=== PATIENT | female | born 1940 | race Caucasian/White ===

== ENCOUNTER 2023-06-02 11:40 | Inpatient (IN) | payer MEDICARE, OTHER ==
[~2023-06-02] VITALS: Ht 157.5 cm; Wt 49.9 kg
[2023-06-02] MEDS ORDERED: LEVO75TA7 PO (12:06)
[2023-06-02] MEDS ORDERED: DOCU-141 PO (12:06)
[2023-06-02] MEDS ORDERED: SENN1TAB59 PO (12:06)
[2023-06-02] MEDS ORDERED: MELO-105 PO (12:06)
[2023-06-02] MEDS ORDERED: ATOR40TA PO (12:06)
[2023-06-02] MEDS ORDERED: BISA-79 PO (12:06)
[2023-06-02] MEDS ORDERED: OMEP20CA15 PO (12:06)
[2023-06-02 12:19] LABS: BASOPHILS # (AUTO) 0.1 K/UL (0.0-0.2); BASOPHILS % (AUTO) 1.2 % (0.0-2.0); EOSINOPHILS # (AUTO) 0.1 K/uL (0.0-0.7); EOSINOPHILS % (AUTO) 2.2 % (0.0-7.0); HEMATOCRIT 36.3 % (31.2-41.9); HEMOGLOBIN 12.1 g/dL (10.9-14.3); LYMPHOCYTES # (AUTO) 0.2 K/uL (0.8-4.8); LYMPHOCYTES % (AUTO) 2.8 % (20.5-51.5); MEAN CORPUSCULAR HEMOGLOBIN 30.3 uug (24.7-32.8); MEAN CORPUSCULAR HGB CONC 33 g/dL (32.3-35.6); MEAN CORPUSCULAR VOLUME 91.1 fL (75.5-95.3); MONOCYTES # (AUTO) 0.3 K/uL (0.1-1.30); MONOCYTES % (AUTO) 5.3 % (0.0-11.0); NEUTROPHILS # (AUTO) 5.6 K/uL (1.8-8.9); NEUTROPHILS % (AUTO) 88.5 % (38.5-71.5); PLATELET COUNT (AUTO) 248 K/uL (179-408); RED BLOOD CELL COUNT(AUTO) 3.98 MIL/uL (3.63-4.92); RED CELL DISTRIBUTION WIDTH 14.5 % (12.3-17.7); WHITE BLOOD COUNT (AUTO) 6.3 K/uL (3.8-11.8)
[2023-06-02 12:28] LABS: CALCIUM 9.5 mg/dL (8.5-10.1); CARBON DIOXIDE 28 mmol/L (21-32); CHLORIDE 97 mmol/L (98-107); GLUCOSE 103 mg/dL (74-106); POTASSIUM 4.1 mmol/L (3.5-5.1); SODIUM SERUM 131 mmol/L (136-145); UREA NITROGEN, BLOOD 25 mg/dL (7-18)
[2023-06-02 12:41] LABS: THYROID STIMULATING HORMONE 1.981 mIU/mL (0.358-3.740)
[2023-06-02 12:42] LABS: DIFFERENTIAL COMMENT 1
[2023-06-02 12:46] LABS: ALANINE AMINOTRANSFERASE 12 U/L (14-59); ALKALINE PHOSPHATASE 67 U/L (50-136); AMMONIA < 10 umol/L (11-32); ASPARTATE AMINOTRANSFERASE 12 U/L (15-37); BILIRUBIN,DIRECT 0.1 mg/dL (0.0-0.2); BILIRUBIN,TOTAL 0.4 mg/dL (0.2-1.0); ETHANOL < 3 MG/DL (0-10); TOTAL PROTEIN, SERUM 6.2 g/dL (6.4-8.2)
[2023-06-02 12:47] LABS: ACETAMINOPHEN < 2.0 ug/mL (10-30)
[2023-06-02] MEDS ORDERED: diphenhydrAMINE 50 MG/1 ML VIAL IV ONE (13:00)
[2023-06-02] MEDS ORDERED: diphenhydrAMINE 50 MG CAPSULE PO ONE (13:15)
[2023-06-02] MEDS ORDERED: diphenhydrAMINE 50 MG CAPSULE ONE (13:16)
[2023-06-02 13:30] LABS: *BILIRUBIN,URIN NEGATIVE (NEGATIVE); *CLARITY,URINE CLEAR (CLEAR); *COLOR,URINE YELLOW (YELLOW); *KETONES,URINE NEGATIVE (NEGATIVE); *PROTEIN,URINE NEGATIVE (NEGATIVE); *UROBILINOGEN,URINE 0.2 E.U./dl (NORMAL); LEUKOCYTE ESTERASE ,URINE 3+ (NEGATIVE); NITRITE, URINE POSITIVE (NEGATIVE); UGLUCOSE NEGATIVE (NEGATIVE)
[2023-06-02 13:36] LABS: *BLOOD, URINE TRACE (NEGATIVE)
[2023-06-02 13:49] LABS: BACTERIA,URINE MANY /HPF (NONE SEEN); SQUAMOUS EPITHELIAL CELL,UR FEW /HPF (NONE SEEN); WBC,URINE 80-100 /HPF (0-3)
[2023-06-02] MEDS ORDERED: AMIN30LI2 PO (14:22)
[2023-06-02] MEDS ORDERED: MAGN400O6 PO (14:22)
[2023-06-02] MEDS ORDERED: ACET325C7 PO (14:22)
[2023-06-02] MEDS ORDERED: CRAN450T9 PO (14:22)
[2023-06-02] MEDS ORDERED: BENA20TA78 PO (14:22)
[2023-06-02] MEDS ORDERED: NA P133E RC (14:22)
[2023-06-02] MEDS ORDERED: BUSP15TA3 PO (14:22)
[2023-06-02] MEDS ORDERED: DONE5TAB7 PO (14:22)
[2023-06-02] MEDS ORDERED: BISA10SU61 RC (14:22)
[2023-06-02] MEDS ORDERED: PERMETHRIN 5% CREAM 60 GM TUBE TP ONE (15:15)
[2023-06-02] MEDS ORDERED: MAGNESIUM HYDROXIDE 30 ML LIQUID UDC PO PRN (16:30)
[2023-06-02] MEDS ORDERED: MAG HYDROX/AL HYDROX/SIMETH 30 ML LIQUID UDC PO PRN (16:30)
[2023-06-02] MEDS ORDERED: BLOOD SUGAR DIAGNOSTIC 1 EACH STRIP VI ONE (16:30)
[2023-06-02 18:01] VITALS: BP 120/87; TEMP 98.4; O2SAT 96
[2023-06-02 19:51] VITALS: BP 125/82; TEMP 98.4; O2SAT 96
[2023-06-02] MEDS: TEMAZEPAM 7.5 MG CAPSULE PO PRN (20:40)
[2023-06-03 08:33] LABS: BASOPHILS # (AUTO) 0.1 K/UL (0.0-0.2); EOSINOPHILS # (AUTO) 0.4 K/uL (0.0-0.7); EOSINOPHILS % (AUTO) 6.8 % (0.0-7.0); HEMATOCRIT 38.5 % (31.2-41.9); HEMOGLOBIN 12.9 g/dL (10.9-14.3); LYMPHOCYTES # (AUTO) 0.5 K/uL (0.8-4.8); LYMPHOCYTES % (AUTO) 8.1 % (20.5-51.5); MEAN CORPUSCULAR HEMOGLOBIN 30.3 uug (24.7-32.8); MEAN CORPUSCULAR HGB CONC 34 g/dL (32.3-35.6); MEAN CORPUSCULAR VOLUME 90.2 fL (75.5-95.3); MONOCYTES # (AUTO) 0.4 K/uL (0.1-1.30); MONOCYTES % (AUTO) 6.4 % (0.0-11.0); NEUTROPHILS # (AUTO) 5.1 K/uL (1.8-8.9); NEUTROPHILS % (AUTO) 77.7 % (38.5-71.5); PLATELET COUNT (AUTO) 252 K/uL (179-408); RED BLOOD CELL COUNT(AUTO) 4.27 MIL/uL (3.63-4.92); RED CELL DISTRIBUTION WIDTH 14.4 % (12.3-17.7); WHITE BLOOD COUNT (AUTO) 6.6 K/uL (3.8-11.8)
[2023-06-03 08:36] LABS: DIFFERENTIAL COMMENT 1
[2023-06-03 08:45] LABS: ALANINE AMINOTRANSFERASE 14 U/L (14-59); ALBUMIN 3.2 g/dL (3.4-5.0); ALKALINE PHOSPHATASE 74 U/L (50-136); ASPARTATE AMINOTRANSFERASE 15 U/L (15-37); BILIRUBIN,TOTAL 0.5 mg/dL (0.2-1.0); CALCIUM 8.9 mg/dL (8.5-10.1); CARBON DIOXIDE 24 mmol/L (21-32); CHLORIDE 100 mmol/L (98-107); CREATININE 0.8 mg/dL (0.6-1.3); GLUCOSE 88 mg/dL (74-106); SODIUM SERUM 133 mmol/L (136-145); TOTAL PROTEIN, SERUM 6.6 g/dL (6.4-8.2); UREA NITROGEN, BLOOD 20 mg/dL (7-18)
[2023-06-03] MEDS: GLUCERNA SHAKE 237 ML CAN PO SCH (09:11)
[2023-06-03 10:57] VITALS: BP 133/83; TEMP 97.2; O2SAT 97
[2023-06-03] MEDS: MELOXICAM 7.5 MG TABLET PO SCH (13:00)
[2023-06-03] MEDS ORDERED: BISACODYL 5 MG TABLET.DR PO PRN (13:00)
[2023-06-03] MEDS: DIVALPROEX SPRINKLE 125 MG CAP.SPRINK PO SCH ×2 (13:01→16:53)
[2023-06-03] MEDS: BENAZEPRIL HCL 20 MG TABLET PO SCH (14:09)
[2023-06-03] MEDS: CEphaleXIN 500 MG CAPSULE PO SCH ×2 (14:09→22:22)
[2023-06-03] MEDS: LEVOTHYROXINE SODIUM 75 MCG TABLET PO SCH (14:09)
[2023-06-03] MEDS: PROTEIN SUPPLEMENT (PROSTAT) 30 ML LIQUID PO SCH (14:20)
[2023-06-03 15:50] VITALS: BP 120/68; TEMP 98.2; O2SAT 98
[2023-06-03] MEDS: SENNOSIDES/DOCUSATE SODIUM TABLET PO SCH (16:53)
[2023-06-03 20:00] VITALS: BP 113/60; TEMP 98.4; O2SAT 99
[2023-06-03] MEDS: ATORVASTATIN 40 MG TABLET PO SCH (20:29)
[2023-06-03] MEDS: LORAZEPAM 0.5 MG TABLET PO PRN (20:29)
[2023-06-03] MEDS: REMEDY ESSENTIAL ZINC PASTE 113 GM TOP SCH (21:40)
[2023-06-04] MEDS: LORAZEPAM 0.5 MG TABLET PO PRN ×3 (03:36→20:08)
[2023-06-04] MEDS ORDERED: diphenhydrAMINE 25 MG CAP PO ONE (04:15)
[2023-06-04] MEDS: LEVOTHYROXINE SODIUM 75 MCG TABLET PO SCH (06:51)
[2023-06-04] MEDS: PANTOPRAZOLE SODIUM 40 MG TABLET.DR PO SCH (06:54)
[2023-06-04 07:50] VITALS: BP 142/61; TEMP 98.1; O2SAT 98
[2023-06-04] MEDS: CEphaleXIN 500 MG CAPSULE PO SCH ×2 (10:08→20:08)
[2023-06-04] MEDS: DIVALPROEX SPRINKLE 125 MG CAP.SPRINK PO SCH ×3 (10:08→16:26)
[2023-06-04] MEDS: BENAZEPRIL HCL 20 MG TABLET PO SCH (10:09)
[2023-06-04] MEDS: GLUCERNA SHAKE 237 ML CAN PO SCH (10:09)
[2023-06-04] MEDS: MELOXICAM 7.5 MG TABLET PO SCH (10:09)
[2023-06-04] MEDS: PROTEIN SUPPLEMENT (PROSTAT) 30 ML LIQUID PO SCH (10:09)
[2023-06-04] MEDS: REMEDY ESSENTIAL ZINC PASTE 113 GM TOP SCH ×2 (10:10→20:09)
[2023-06-04 16:15] VITALS: BP 118/56; TEMP 98; O2SAT 99
[2023-06-04] MEDS: SENNOSIDES/DOCUSATE SODIUM TABLET PO SCH (17:24)
[2023-06-04] MEDS: ATORVASTATIN 40 MG TABLET PO SCH (20:08)
[2023-06-04 20:29] VITALS: BP 115/63; TEMP 97.8; O2SAT 96
[2023-06-04] MEDS: TEMAZEPAM 7.5 MG CAPSULE PO PRN (21:13)
[2023-06-05] MEDS: LEVOTHYROXINE SODIUM 75 MCG TABLET PO SCH (06:31)
[2023-06-05] MEDS: PANTOPRAZOLE SODIUM 40 MG TABLET.DR PO SCH (06:31)
[2023-06-05 08:02] VITALS: BP 112/58; TEMP 98.1; O2SAT 98
[2023-06-05] MEDS: DIVALPROEX SPRINKLE 125 MG CAP.SPRINK PO SCH ×3 (08:32→16:14)
[2023-06-05] MEDS: MELOXICAM 7.5 MG TABLET PO SCH (08:32)
[2023-06-05] MEDS: CEphaleXIN 500 MG CAPSULE PO SCH (08:32)
[2023-06-05] MEDS: BENAZEPRIL HCL 20 MG TABLET PO SCH (08:33)
[2023-06-05] MEDS: REMEDY ESSENTIAL ZINC PASTE 113 GM TOP SCH ×2 (08:33→20:36)
[2023-06-05] MEDS: GLUCERNA SHAKE 237 ML CAN PO SCH (08:34)
[2023-06-05] MEDS: PROTEIN SUPPLEMENT (PROSTAT) 30 ML LIQUID PO SCH (08:34)
[2023-06-05] MEDS: diphenhydrAMINE 25 MG CAP PO PRN ×2 (12:34→21:35)
[2023-06-05] MEDS: LORAZEPAM 0.5 MG TABLET PO PRN (16:14)
[2023-06-05 16:32] VITALS: BP 102/54; TEMP 98; O2SAT 98
[2023-06-05] MEDS: SENNOSIDES/DOCUSATE SODIUM TABLET PO SCH (17:03)
[2023-06-05 20:32] VITALS: BP 110/49; TEMP 98.4; O2SAT 98
[2023-06-05] MEDS: SULFAMETH/TRIMETH 800/160 MG TABLET PO SCH (20:35)
[2023-06-05] MEDS: ATORVASTATIN 40 MG TABLET PO SCH (20:36)
[2023-06-06] MEDS: LEVOTHYROXINE SODIUM 75 MCG TABLET PO SCH (06:39)
[2023-06-06] MEDS: PANTOPRAZOLE SODIUM 40 MG TABLET.DR PO SCH (06:40)
[2023-06-06 07:54] VITALS: BP 122/58; TEMP 98.5; O2SAT 98
[2023-06-06] MEDS: MELOXICAM 7.5 MG TABLET PO SCH (08:33)
[2023-06-06] MEDS: DIVALPROEX SPRINKLE 125 MG CAP.SPRINK PO SCH ×3 (08:33→16:30)
[2023-06-06] MEDS: SULFAMETH/TRIMETH 800/160 MG TABLET PO SCH ×2 (08:33→20:35)
[2023-06-06] MEDS: PROTEIN SUPPLEMENT (PROSTAT) 30 ML LIQUID PO SCH (08:34)
[2023-06-06] MEDS: GLUCERNA SHAKE 237 ML CAN PO SCH (08:34)
[2023-06-06] MEDS: BENAZEPRIL HCL 20 MG TABLET PO SCH (08:34)
[2023-06-06] MEDS: REMEDY ESSENTIAL ZINC PASTE 113 GM TOP SCH ×2 (08:35→20:35)
[2023-06-06] MEDS: diphenhydrAMINE 25 MG CAP PO PRN (10:21)
[2023-06-06 16:26] VITALS: BP 107/50; TEMP 98.2; O2SAT 97
[2023-06-06] MEDS: SENNOSIDES/DOCUSATE SODIUM TABLET PO SCH (17:10)
[2023-06-06 20:00] VITALS: BP 133/51; TEMP 97.8; O2SAT 99
[2023-06-06] MEDS: ATORVASTATIN 40 MG TABLET PO SCH (20:35)
[2023-06-07] MEDS: diphenhydrAMINE 25 MG CAP PO PRN ×2 (02:59→13:13)
[2023-06-07] MEDS: LORAZEPAM 0.5 MG TABLET PO PRN (05:41)
[2023-06-07] MEDS: PANTOPRAZOLE SODIUM 40 MG TABLET.DR PO SCH (07:09)
[2023-06-07] MEDS: LEVOTHYROXINE SODIUM 75 MCG TABLET PO SCH (07:09)
[2023-06-07 07:44] VITALS: BP 119/60; TEMP 98; O2SAT 98
[2023-06-07] MEDS: SULFAMETH/TRIMETH 800/160 MG TABLET PO SCH ×2 (08:48→20:58)
[2023-06-07] MEDS: MELOXICAM 7.5 MG TABLET PO SCH (08:48)
[2023-06-07] MEDS: DIVALPROEX SPRINKLE 125 MG CAP.SPRINK PO SCH ×3 (08:48→16:41)
[2023-06-07] MEDS: BENAZEPRIL HCL 20 MG TABLET PO SCH (08:48)
[2023-06-07] MEDS: PROTEIN SUPPLEMENT (PROSTAT) 30 ML LIQUID PO SCH (08:49)
[2023-06-07] MEDS: GLUCERNA SHAKE 237 ML CAN PO SCH (08:50)
[2023-06-07] MEDS: REMEDY ESSENTIAL ZINC PASTE 113 GM TOP SCH ×2 (08:50→20:59)
[2023-06-07 15:07] VITALS: BP 107/52; TEMP 98.2; O2SAT 98
[2023-06-07] MEDS: SENNOSIDES/DOCUSATE SODIUM TABLET PO SCH (17:28)
[2023-06-07 20:12] VITALS: BP 116/56; TEMP 98.1; O2SAT 96
[2023-06-07] MEDS: ATORVASTATIN 40 MG TABLET PO SCH (20:58)
[2023-06-08] MEDS: PANTOPRAZOLE SODIUM 40 MG TABLET.DR PO SCH (06:31)
[2023-06-08] MEDS: LEVOTHYROXINE SODIUM 75 MCG TABLET PO SCH (06:32)
[2023-06-08] MEDS: diphenhydrAMINE 25 MG CAP PO PRN ×3 (06:37→20:59)
[2023-06-08] MEDS: PROTEIN SUPPLEMENT (PROSTAT) 30 ML LIQUID PO SCH (08:00)
[2023-06-08 08:06] VITALS: BP 126/67; TEMP 98; O2SAT 96
[2023-06-08] MEDS: GLUCERNA SHAKE 237 ML CAN PO SCH ×2 (09:00→17:00)
[2023-06-08] MEDS: DIVALPROEX SPRINKLE 125 MG CAP.SPRINK PO SCH ×3 (09:49→17:50)
[2023-06-08] MEDS: SULFAMETH/TRIMETH 800/160 MG TABLET PO SCH ×2 (09:49→20:58)
[2023-06-08] MEDS: BENAZEPRIL HCL 20 MG TABLET PO SCH (09:49)
[2023-06-08] MEDS: MELOXICAM 7.5 MG TABLET PO SCH (09:50)
[2023-06-08] MEDS: REMEDY ESSENTIAL ZINC PASTE 113 GM TOP SCH ×2 (09:50→20:59)
[2023-06-08 13:00] VITALS: BP 106/53; TEMP 97.9; O2SAT 100
[2023-06-08] MEDS: SENNOSIDES/DOCUSATE SODIUM TABLET PO SCH (17:52)
[2023-06-08 20:00] VITALS: BP 108/41; TEMP 98; O2SAT 96
[2023-06-08] MEDS: ATORVASTATIN 40 MG TABLET PO SCH (20:58)
[2023-06-08] MEDS: LORAZEPAM 0.5 MG TABLET PO PRN (23:00)
[2023-06-09] MEDS: diphenhydrAMINE 25 MG CAP PO PRN ×2 (03:48→10:21)
[2023-06-09 07:30] VITALS: BP 144/71; TEMP 97.5; O2SAT 97
[2023-06-09] MEDS: LEVOTHYROXINE SODIUM 75 MCG TABLET PO SCH (07:40)
[2023-06-09] MEDS: PANTOPRAZOLE SODIUM 40 MG TABLET.DR PO SCH (07:40)
[2023-06-09] MEDS: GLUCERNA SHAKE 237 ML CAN PO SCH ×2 (08:00→17:00)
[2023-06-09] MEDS: BENAZEPRIL HCL 20 MG TABLET PO SCH (09:11)
[2023-06-09] MEDS: DIVALPROEX SPRINKLE 125 MG CAP.SPRINK PO SCH ×3 (09:11→17:06)
[2023-06-09] MEDS: MELOXICAM 7.5 MG TABLET PO SCH (09:12)
[2023-06-09] MEDS: REMEDY ESSENTIAL ZINC PASTE 113 GM TOP SCH ×2 (09:12→20:21)
[2023-06-09] MEDS: PROTEIN SUPPLEMENT (PROSTAT) 30 ML LIQUID PO SCH (09:13)
[2023-06-09] MEDS: LORAZEPAM 0.5 MG TABLET PO PRN (14:34)
[2023-06-09 15:52] VITALS: BP 96/50; TEMP 97.3; O2SAT 99
[2023-06-09] MEDS: SENNOSIDES/DOCUSATE SODIUM TABLET PO SCH (17:08)
[2023-06-09 20:00] VITALS: BP 110/60; TEMP 98; O2SAT 94
[2023-06-09] MEDS: ATORVASTATIN 40 MG TABLET PO SCH (20:20)
[2023-06-09] MEDS: ACETAMINOPHEN 325 MG TABLET PO PRN (20:20)
[2023-06-10] MEDS: diphenhydrAMINE 25 MG CAP PO PRN ×2 (00:31→15:14)
[2023-06-10] MEDS: LEVOTHYROXINE SODIUM 75 MCG TABLET PO SCH (06:16)
[2023-06-10] MEDS: PANTOPRAZOLE SODIUM 40 MG TABLET.DR PO SCH (06:16)
[2023-06-10 07:30] VITALS: BP 125/59; TEMP 97.5; O2SAT 100
[2023-06-10] MEDS: PROTEIN SUPPLEMENT (PROSTAT) 30 ML LIQUID PO SCH (08:00)
[2023-06-10] MEDS: GLUCERNA SHAKE 237 ML CAN PO SCH ×2 (08:00→16:40)
[2023-06-10] MEDS: BENAZEPRIL HCL 20 MG TABLET PO SCH (08:50)
[2023-06-10] MEDS: DIVALPROEX SPRINKLE 125 MG CAP.SPRINK PO SCH ×3 (08:50→16:39)
[2023-06-10] MEDS: MELOXICAM 7.5 MG TABLET PO SCH (08:50)
[2023-06-10] MEDS: REMEDY ESSENTIAL ZINC PASTE 113 GM TOP SCH ×2 (08:51→20:14)
[2023-06-10] MEDS: ACETAMINOPHEN 325 MG TABLET PO PRN (15:39)
[2023-06-10 16:00] VITALS: BP 120/54; TEMP 97.8; O2SAT 100
[2023-06-10] MEDS: SENNOSIDES/DOCUSATE SODIUM TABLET PO SCH (18:00)
[2023-06-10 20:00] VITALS: BP 110/58; TEMP 97.7; O2SAT 98
[2023-06-10] MEDS: ATORVASTATIN 40 MG TABLET PO SCH (20:13)
[2023-06-10] MEDS: LORAZEPAM 0.5 MG TABLET PO PRN (20:13)
[2023-06-11] MEDS: LEVOTHYROXINE SODIUM 75 MCG TABLET PO SCH (05:59)
[2023-06-11] MEDS: PANTOPRAZOLE SODIUM 40 MG TABLET.DR PO SCH (06:00)
[2023-06-11] MEDS: GLUCERNA SHAKE 237 ML CAN PO SCH ×2 (08:00→16:29)
[2023-06-11 08:11] VITALS: BP 117/56; TEMP 98.4; O2SAT 98
[2023-06-11] MEDS: DIVALPROEX SPRINKLE 125 MG CAP.SPRINK PO SCH ×3 (08:46→16:29)
[2023-06-11] MEDS: MELOXICAM 7.5 MG TABLET PO SCH (08:47)
[2023-06-11] MEDS: REMEDY ESSENTIAL ZINC PASTE 113 GM TOP SCH ×2 (08:47→20:11)
[2023-06-11] MEDS: BENAZEPRIL HCL 20 MG TABLET PO SCH (08:48)
[2023-06-11] MEDS: PROTEIN SUPPLEMENT (PROSTAT) 30 ML LIQUID PO SCH (08:49)
[2023-06-11 16:06] VITALS: BP 101/53; TEMP 98.2; O2SAT 98
[2023-06-11] MEDS: SENNOSIDES/DOCUSATE SODIUM TABLET PO SCH (16:33)
[2023-06-11 20:00] VITALS: BP 116/62; TEMP 97.6; O2SAT 100
[2023-06-11] MEDS: ATORVASTATIN 40 MG TABLET PO SCH (20:10)
[2023-06-11] MEDS: diphenhydrAMINE 25 MG CAP PO PRN (20:10)
[2023-06-11] MEDS: TEMAZEPAM 7.5 MG CAPSULE PO PRN (23:13)
[2023-06-12] MEDS: LEVOTHYROXINE SODIUM 75 MCG TABLET PO SCH (06:00)
[2023-06-12] MEDS: PANTOPRAZOLE SODIUM 40 MG TABLET.DR PO SCH (06:00)
[2023-06-12] MEDS: GLUCERNA SHAKE 237 ML CAN PO SCH ×2 (08:00→17:00)
[2023-06-12 08:03] VITALS: BP 140/68; TEMP 98.1; O2SAT 98
[2023-06-12] MEDS: DIVALPROEX SPRINKLE 125 MG CAP.SPRINK PO SCH ×3 (08:38→17:18)
[2023-06-12] MEDS: BENAZEPRIL HCL 20 MG TABLET PO SCH (08:38)
[2023-06-12] MEDS: MELOXICAM 7.5 MG TABLET PO SCH (08:38)
[2023-06-12] MEDS: REMEDY ESSENTIAL ZINC PASTE 113 GM TOP SCH ×2 (08:38→20:24)
[2023-06-12] MEDS: PROTEIN SUPPLEMENT (PROSTAT) 30 ML LIQUID PO SCH (08:39)
[2023-06-12 16:29] VITALS: BP 92/51; TEMP 98; O2SAT 98
[2023-06-12] MEDS: SENNOSIDES/DOCUSATE SODIUM TABLET PO SCH (17:18)
[2023-06-12 19:51] VITALS: BP 124/42; TEMP 98; O2SAT 96
[2023-06-12] MEDS: diphenhydrAMINE 25 MG CAP PO PRN (20:22)
[2023-06-12] MEDS: ATORVASTATIN 40 MG TABLET PO SCH (20:22)
[2023-06-12] MEDS: TEMAZEPAM 7.5 MG CAPSULE PO PRN (21:28)
[2023-06-13] MEDS: PANTOPRAZOLE SODIUM 40 MG TABLET.DR PO SCH (06:27)
[2023-06-13] MEDS: LEVOTHYROXINE SODIUM 75 MCG TABLET PO SCH (06:27)
[2023-06-13 07:52] VITALS: BP 140/63; TEMP 98.1; O2SAT 98
[2023-06-13 08:33] VITALS: BP 140/63
[2023-06-13] MEDS: DIVALPROEX SPRINKLE 125 MG CAP.SPRINK PO SCH ×2 (08:33→12:44)
[2023-06-13] MEDS: BENAZEPRIL HCL 20 MG TABLET PO SCH (08:33)
[2023-06-13] MEDS: GLUCERNA SHAKE 237 ML CAN PO SCH (08:34)
[2023-06-13] MEDS: REMEDY ESSENTIAL ZINC PASTE 113 GM TOP SCH (08:34)
[2023-06-13] MEDS: PROTEIN SUPPLEMENT (PROSTAT) 30 ML LIQUID PO SCH (08:34)
[2023-06-13] MEDS: MELOXICAM 7.5 MG TABLET PO SCH (08:35)
[2023-06-13] MEDS: diphenhydrAMINE 25 MG CAP PO PRN (08:41)
== END 2023-06-13 15:15 | DRG 885 ==
LOC: ER 11:40 → GPS 14:56
PROVIDERS: ADMIT Psychiatry & Neurology Psychosomatic Medicine; ATTEND Nurse Practitioner Acute Care
DX: F39 Unspecified mood [affective] disorder (principal); G93.41 Metabolic encephalopathy; E87.1 Hypo-osmolality and hyponatremia; E44.1 Mild protein-calorie malnutrition; N39.0 Urinary tract infection, site not specified; F03.94 Unspecified dementia, unspecified severity, with anxiety; F03.93 Unspecified dementia, unspecified severity, with mood disturbance; F25.0 Schizoaffective disorder, bipolar type; E11.9 Type 2 diabetes mellitus without complications; E03.9 Hypothyroidism, unspecified; E78.5 Hyperlipidemia, unspecified; Z79.890 Hormone replacement therapy; Z79.899 Other long term (current) drug therapy; E86.0 Dehydration; B96.89 Other specified bacterial agents as the cause of diseases classified elsewhere; I70.0 Atherosclerosis of aorta; K59.09 Other constipation; Z86.19 Personal history of other infectious and parasitic diseases; I10 Essential (primary) hypertension; E88.09 Other disorders of plasma-protein metabolism, not elsewhere classified; Z68.20 Body mass index [BMI] 20.0-20.9, adult
CPT/HCPCS: 36415; 70450; 71045; 80164; 83605; 84443; 84484; 85025; 85730; 87040; 93005; C1758; G0480; Q0163